=== PATIENT | male | born 1990 | race Caucasian/White ===

== ENCOUNTER 2024-03-11 23:30 | Emergency (ER) | payer SELFPAY ==
[~2024-03-11] VITALS: Ht 167.6 cm; Wt 66.2 kg
[2024-03-11 23:32] VITALS: BP 147/85; PULSE 74; RESP 16; TEMP 95.1; O2SAT 96
[2024-03-12 00:31] LABS: BASOPHILS % (AUTO) 0.2 % (0.0-2.0); EOSINOPHILS % (AUTO) 0.2 % (0.0-4.0); HEMATOCRIT 46.8 % (36-52); HEMOGLOBIN 15.6 g/dL (12.0-18.0); LYMPHOCYTES # (AUTO) 2.3 K/uL (2.0-11.5); LYMPHOCYTES % (AUTO) 11.3 % (20.5-51.1); MEAN CORPUSCULAR HEMOGLOBIN 29 pg (27-31); MEAN CORPUSCULAR HGB CONC 33 g/dL (33-37); MEAN CORPUSCULAR VOLUME 86.2 fL (80-94); MONOCYTES # (AUTO) 1.2 K/uL (0.8-1.0); MONOCYTES % (AUTO) 5.7 % (1.7-9.3); NEUTROPHILS # (AUTO) 17.1 K/uL (1.8-7.7); NEUTROPHILS % (AUTO) 82.6 % (42.2-75.2); PLATELET COUNT (AUTO) 237 K/uL (140-450); RED BLOOD CELL COUNT(AUTO) 5.43 MIL/uL (4.20-6.10); RED CELL DISTRIBUTION WIDTH 13.4 % (11.6-13.7); WHITE BLOOD COUNT (AUTO) 20.7 K/uL (4.8-10.8)
[2024-03-12] MEDS: NACL 0.9% 1,000 ML IV ONE (00:31)
[2024-03-12 00:43] LABS: CALCIUM 8.6 mg/dL (8.5-10.1); CARBON DIOXIDE 28.1 mmol/L (21-32); POTASSIUM 3.1 mmol/L (3.5-5.1)
[2024-03-12] MEDS: POTASSIUM CHLORIDE 10 MEQ TABER PO ONE (01:53)
[2024-03-12 03:04] VITALS: BP 147/85; PULSE 74; RESP 16; TEMP 95.1; O2SAT 96
== END 2024-03-12 03:02 | disposition home or self-care (01) ==
LOC: MED 23:30
DX: E87.6 Hypokalemia (principal); E86.0 Dehydration; D72.829 Elevated white blood cell count, unspecified; X30.XXXA Exposure to excessive natural heat, initial encounter; Y93.89 Activity, other specified; Y92.89 Other specified places as the place of occurrence of the external cause; Y99.8 Other external cause status
CPT/HCPCS: 36415; 80048; 84484; 85025; 93005; 96360; 99284; J7030